=== PATIENT | female | born 1990 | race Caucasian/White ===

== ENCOUNTER → 2017-07-27 | Outpatient (REF) | payer OTHER ==
[2017-07-27 21:18] LABS: CHLAMYDIA DNA AMPLIFICATION NEGATIVE (NEGATIVE); GC DNA AMPLIFICATION NEGATIVE (NEGATIVE)
== END ==
LOC: M LAB REF 16:43
DX: Z34.81 Encounter for supervision of other normal pregnancy, first trimester (principal)

== ENCOUNTER → 2018-01-06 | Outpatient (REF) | payer OTHER | LOC: M LAB REF 12:49 | DX: Z36.85 Encounter for antenatal screening for Streptococcus B (principal); Z3A.00 Weeks of gestation of pregnancy not specified | CPT/HCPCS: 87186 ==

== ENCOUNTER 2018-02-03 05:54 | Inpatient (IN) | payer OTHER ==
[2018-02-03] MEDS ORDERED: ACETAMINOPHEN 650 MG SUPP PR (06:30)
[2018-02-03] MEDS: LACTATED RINGER'S 1000 ML IV (06:30)
[2018-02-03 06:58] LABS: HEMATOCRIT 37.4 % (36.0-47.0); HEMOGLOBIN 13.2 g/dl (12.0-15.5); MEAN CORPUSCULAR HEMOGLOBIN 33.2 pg (27.0-33.0); MEAN CORPUSCULAR HGB CONC 35.3 g/dl (32.0-36.5); MEAN CORPUSCULAR VOLUME 94.2 fl (80.0-96.0); PLATELET COUNT, AUTOMATED 182 10^3/uL (150-450); RED BLOOD COUNT 3.97 10^6/uL (4.00-5.40); RED CELL DISTRIBUTION WIDTH 13.2 % (11.5-14.5); WHITE BLOOD COUNT 8.6 10^3/uL (4.0-10.0)
[2018-02-03] MEDS ORDERED: LR 1,000 ML IV (07:01)
[2018-02-03] MEDS: BICITRA 30ML SOLN UDC PO (07:28)
[2018-02-03] MEDS ORDERED: MORPHINE PRES-FREE INJ 10 MG/10 ML VIAL (J2274) As Ordered (07:35)
[2018-02-03] MEDS ORDERED: OXYTOCIN INJ 10 UNITS/ML VIAL (J2590) As Ordered ×2 (07:36→08:21)
[2018-02-03] MEDS ORDERED: NALBUPHINE HCL 10 MG/ML AMP (J2300) IV (07:43)
[2018-02-03] MEDS ORDERED: NALOXONE INJ 0.4 MG/1 ML VIAL (J2310) IV ×2 (07:43)
[2018-02-03] MEDS ORDERED: PHENYLephrine HCL 500 MCG/5 ML (100MCG/ML) SYRINGE (J2370) As Ordered (08:07)
[2018-02-03] MEDS ORDERED: ePHEDrine SULFATE 25 MG/5 ML(5MG/ML) SYRINGE As Ordered (08:07)
[2018-02-03] MEDS ORDERED: ONDANSETRON 4MG/2ML VIAL (J2405) As Ordered ×2 (08:07→09:41)
[2018-02-03 08:26] LABS: CORD GAS ABE V -3.9; CORD GAS O2 SAT V 60.7 %; CORD GAS PCO2 V 48.4 mmHg; CORD GAS PH V 7.294 UNITS; CORD GAS PO2 V 28.3 mmHg; CORD GAS SBC V 20.3 MEQ/L; CORD GAS TCO2 V 24.4 MEQ/L
[2018-02-03] MEDS ORDERED: KETOROLAC 60 MG/2 ML VIAL (J1885) As Ordered (08:28)
[2018-02-03] MEDS: PRENATAL VITAMINS CHEWABLE TABLET PO (09:00)
[2018-02-03] MEDS ORDERED: DOCUSATE SODIUM 100 MG CAP PO (09:00)
[2018-02-03] MEDS ORDERED: METHYLERGONOVINE MALEATE 0.2 MG/ML VIAL (J2210) IM (09:00)
[2018-02-03] MEDS: LR 1,000 ML IV ×3 (09:15→18:20)
[2018-02-03] MEDS ORDERED: fentaNYL 100 MCG/2 ML INJECTION (J3010) IV (09:15)
[2018-02-03] MEDS ORDERED: PERCOCET 5MG/325MG TAB PO (09:15)
[2018-02-03] MEDS ORDERED: OXYTOCIN 30 UNITS IN 0.9% NaCl 500ML IV BAG (J2590) As Ordered (09:23)
[2018-02-03] MEDS: RHOGAM 300 MCG (1500 IU) INJ (J2790) IM (09:24)
[2018-02-03] MEDS: OXYTOCIN DRIP 30 UNITS in APPROPRIATE DILUENT 1 EA IV (09:24)
[2018-02-03] MEDS: ONDANSETRON 4MG/2ML VIAL (J2405) IV ×2 (09:31→16:37)
[2018-02-03] MEDS: METOCLOPRAMIDE INJ 10MG/2ML VIAL (J2765) IV (10:51)
[2018-02-03 12:38] LABS: HBSAG L&D NEGATIVE (NEGATIVE)
[2018-02-03] MEDS: KETOROLAC 30 MG/ML VIAL (J1885) IV ×2 (15:04→21:33)
[2018-02-04] MEDS: LR 1,000 ML IV (00:49)
[2018-02-04] MEDS: KETOROLAC 30 MG/ML VIAL (J1885) IV (03:22)
[2018-02-04] MEDS: PERCOCET 5MG/325MG TAB PO ×4 (06:35→23:19)
[2018-02-04 07:03] LABS: HEMATOCRIT 27.8 % (36.0-47.0); MEAN CORPUSCULAR HEMOGLOBIN 32.8 pg (27.0-33.0); MEAN CORPUSCULAR HGB CONC 33.8 g/dl (32.0-36.5); MEAN CORPUSCULAR VOLUME 96.9 fl (80.0-96.0); PLATELET COUNT, AUTOMATED 134 10^3/uL (150-450); RED BLOOD COUNT 2.87 10^6/uL (4.00-5.40); RED CELL DISTRIBUTION WIDTH 13.2 % (11.5-14.5); WHITE BLOOD COUNT 8.3 10^3/uL (4.0-10.0)
[2018-02-04 07:08] LABS: HEMOGLOBIN 9.4 g/dl (12.0-15.5)
[2018-02-04] MEDS: MEASLES,MUMPS,RUBELLA VACCINE INJ (MMR-II) (90707) SC (07:15)
[2018-02-04] MEDS: PRENATAL VITAMINS CHEWABLE TABLET PO (08:53)
[2018-02-04] MEDS ORDERED: IBUPROFEN 800 MG TAB PO (11:00)
[2018-02-04] MEDS ORDERED: INFLUENZA QUADRIVALENT PF VACCINE 0.5ML SYRINGE (90686) IM (16:00)
[2018-02-05] MEDS: PRENATAL VITAMINS CHEWABLE TABLET PO (08:53)
[2018-02-05] MEDS: PERCOCET 5MG/325MG TAB PO (08:53)
[2018-02-05] MEDS: INFLUENZA QUADRIVALENT PF VACCINE 0.5ML SYRINGE (90686) IM (10:40)
== END 2018-02-05 11:30 | disposition home or self-care (01) | DRG 540 ==
LOC: M LDI 05:54 → M OBS 10:15
PROVIDERS: Obstetrics & Gynecology
PROC: 10D00Z1 Extraction of Products of Conception, Low, Open Approach (ICD-10-PCS; principal; 2018-02-03 07:30)
DX: O34.211 Maternal care for low transverse scar from previous cesarean delivery (principal); Z88.0 Allergy status to penicillin; Z37.0 Single live birth; Z91.040 Latex allergy status; Z90.49 Acquired absence of other specified parts of digestive tract; Z98.84 Bariatric surgery status; Z3A.39 39 weeks gestation of pregnancy

== ENCOUNTER → 2022-07-08 | Outpatient (REF) ==
[~2022-07-08] MED LIST: FERR1TAB8 PO; OXYC1TAB23 PO; PERCOCET PO; PRENTAB45 PO; VITA100067 PO; VITA500T17 PO
== END ==
LOC: M RAD 13:22
PROVIDERS: ATTEND Internal Medicine
DX: R52 Pain, unspecified (principal)

== ENCOUNTER → 2024-12-05 | Outpatient (REF) | LOC: M PLAIMG 13:39 | PROVIDERS: ATTEND Internal Medicine | DX: M54.50 Low back pain, unspecified (principal) ==